=== PATIENT | female | born 1975 | race Caucasian/White ===

== ENCOUNTER 2017-05-03 19:51 | Emergency (ER) | payer OTHER, MEDICAID ==
[2017-05-03 19:57] VITALS: BP 136/82; BMI 43.4
--- NOTE | 2017-05-03 20:34 | DR.GENAD ---
HPI - PCP Primary Care Physician: melissa - HPI Comment HPI Comment: GETTING WORSE. NO FEVER OR DYSURIA. - Complaint/Symptoms Chief Complaint Doctors Comments: RIGHT LOWER BACK PAIN RADIATING TO THE RIGHT RT LEG TIMES 2 DAYS. Chief Complaint:: pt c/o pain to rt lower back that radiates down leg - Nurses notes reviewed Nurses Notes Review: Yes - Source History Provided: Patient - Mode of Arrival Mode of Arrival: Ambulatory - Timing Onset of Chief Complaint: 05/01/17 Came on: Suddenly - Duration Duration: Constant Duration: Days PMH - PMH Past Medical History: Yes Past Medical History: Anxiety, COPD, Seizures Past Surgical History: Yes Surgical History: Cholecystectomy, [employer] Surgery - Family History History of Family Medical Conditions: Yes Family Medical History: Diabetes Mellitus - Social History Type of Tobacco Use: Smokeless Alcohol Use: Occasionally Do you use any recreational Drugs:: No Lives With: Family Lives Where: Home - infectious screening In the last 2 months have you had wt loss of >10#?: NO Have you had fever, night sweats or hemotysis?: No Have you traveled outside the country in the last 6 months?: No Isolation: Standard ROS - Review of Systems Constitutional: No Symptoms Reported. negative: Chills, Fever Eyes: No Symptoms Reported. negative: Eye Pain, Discharge ENTM: No Symptoms Reported. negative: Ear Pain, Nose Discharge, Nose Congestion , Throat Swelling Respiratoy: No Symptoms Reported. negative: Productive Cough, Non-Productive Cough, Short of Breath, Wheezing, Hemoptysis Cardiovascular: No Symptoms Reported. negative: Chest Pain Gastrointestinal/Abdominal: No Symptoms Reported. negative: Abdominal Pain, Diarrhea, Nausea, Vomiting Genitourinary: No Symptoms Reported. negative: Dysuria, Frequency, Hematuria Neurological: No Symptoms Reported Musculoskeletal: Back Pain, Muscle Pain, Left, Back, Leg Integumentary: No Symptoms Reported Hematologic/Lymphatic: No Symptoms Reported Psychiatric: No Symptoms Reported All Other Systems: Reviewed and Negative PE - Vital Signs Vitals: Temperature 975 F Pulse Rate 80 Respiratory Rate 18 Blood Pressure [Right Arm] 128/70 Blood Pressure 136/82 O2 Sat by Pulse Oximetry 97 - General Limitations: No Limitations General Appearance: Alert - Head Head Exam: Normal Inspection - Eyes Eye exam: Normal Appearance - ENT ENT Exam: Normal External Ear Exam External Ear Exam: Normal External Inspection TM/Canal Exam: Bilateral Normal Nose Exam: Normal Nose Exam Mouth Exam: Normal Inspection Throat Exam: Normal Inspection - Neck Neck Exam: Normal Inspection - Chest Chest Inspection: Symmetric Chest Wall Rise - Respiratory Respiratory Exam: Normal Lung Sounds Bilat Respiratory Exam: Bilateral Clear to Auscultation - Cardiovascular Cardiovascular Exam: Regular Rate, Normal Rhythm, Normal Heart Sounds - Abdominal Exam Abdominal Exam: Normal Bowel Sounds, Soft. negative: Tenderness - Extremities Extremities Exam: Normal Inspection - Back Back Exam: Paraspinal Tenderness (RT LOWER BACK TENDERNESS.) - Neurologic Neurological Exam: Alert, Oriented X3 - Psychiatric Psychiatric Exam: Normal Affect, Normal Mood - Skin Skin Exam: Normal Color MDM - Additional Information Additional Information Obtained From: Family - Differential Diagnosis Differential Diagnosis: LOW BACK STRAIN, SPRAIN, FRACTURE. Course - Treatment Treatment: SEE ORDERS. IM MED FOR PAIN , IMPROVED. - Reevaluation 1st: Improved - Education/Counseling Education/Counseling: Patient, Family, Education Educated On: Treatment, Diagnosis, Needs for Follow Up ROR - XRAY XRAY Interpreted by: Radiologist XRAY Findings: REPORT DISCUSS WITH PATIENT. - Diagnosis Discharge Problem: Low back strain Qualifiers: Encounter type: initial encounter Qualified Code(s): S39.012A - Strain of muscle, fascia and tendon of lower back, initial encounter Low back sprain Qualifiers: Encounter type: initial encounter Qualified Code(s): S33.9XXA - Sprain of unspecified parts of lumbar spine and pelvis, initial encounter Low back pain Qualifiers: Chronicity: acute Back pain laterality: right Sciatica presence: with sciatica Sciatica laterality: sciatica of right side Qualified Code(s): M54.41 - Lumbago with sciatica, right side - Discharge Plan Disposition: 01 HOME, SELF-CARE Condition: Stable Prescriptions: Cyclobenzaprine HCl [Flexeril] 5 mg PO TID PRN #20 tab PRN Reason: Muscle Spasms Ibuprofen [MOTRIN TAB 800 MG *] 800 mg PO Q8H PRN #20 tab PRN Reason: Pain/Inflammation Tramadol HCl 50 mg PO Q8H PRN #15 tablet PRN Reason: - Follow ups/Referrals Follow ups/Referrals: SAMANTHA ANTUNEZ [Primary Care Provider] - 2 days - Instructions Instructions: Osteoarthritis, Musculoskeletal Pain, Back Pain, Adult, Easy-to- Read Additional Instructions: RETURN TO ED IF WORSE.
[2017-05-03] MEDS ORDERED: NORFLEX INJ IM ONE (20:39)
[2017-05-03] MEDS ORDERED: TORADOL 60 MG VIAL IM ONE (20:39)
[2017-05-03] MEDS ORDERED: NORFLEX INJ ONE (21:01)
[2017-05-03] MEDS ORDERED: TORADOL 60 MG VIAL ONE (21:01)
--- NOTE | 2017-05-03 21:27 | RAD ---
HISTORY: Pain Study: MR spine series Comparison: None Findings: The lumbar vertebra are well aligned. There is moderate disc space narrowing throughout the thoracolu mbar region a mild disc space narrowing throughout the lower lumbar spine with mild marginal osteophy karlo along the thoracolumbar region. No fracture or subluxation is seen. The pedicles are intact. Ther e are no pars defects. There are moderate sclerotic changes of the facets inferiorly. IMPRESSION: Moderate degenerative disk changes along the thoracolumbar spine and mild degenerative disk changes i nferiorly with no acute abnormality seen. 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 Reported By:
== END 2017-05-03 21:48 | disposition home or self-care (01) ==
LOC: ER 19:51
DX: S39.012A Strain of muscle, fascia and tendon of lower back, initial encounter (principal); S33.9XXA Sprain of unspecified parts of lumbar spine and pelvis, initial encounter; M54.41 Lumbago with sciatica, right side; M51.36 Other intervertebral disc degeneration, lumbar region; M47.896 Other spondylosis, lumbar region; Y33.XXXA Other specified events, undetermined intent, initial encounter; Y92.9 Unspecified place or not applicable
CPT/HCPCS: 72110; 96372; 99282; 99283; J1885; J2360

== ENCOUNTER 2017-09-30 13:22 | Emergency (ER) | payer OTHER, MEDICAID ==
[2017-09-30 13:26] VITALS: BP 137/86; BMI 40.7
--- NOTE | 2017-09-30 14:20 | DR.URIAD ---
HPI - Time Seen Time seen: 14:57 - PCP Primary Care Physician: HARMONY - HPI Comment HPI Comment: sick for about 4 days with flu-like symptoms, no known sick contacts - Complaint Chief Complaint:: PT. C/O FEVER, CHILLS, COUGH, CHEST CONGESTION, NAUSEA, SORE THROAT X 4 DAYS. - Reviewed Nurses Notes Reviewed: Yes - Source History Provided: Patient - Mode of Arrival Mode of Arrival: Ambulatory - Timing Onset of Chief Complaint: 09/26/17 - Associated Signs and Symptoms Other Signs and Symptoms: Cough, Fever, Myalgias, Nasal Symptoms, Sore Throat PMH - PMH Past Medical History: Yes Past Medical History: Seizures Past Medical History Comment: SHIZOAFFECTIVE DISORDER Past Surgical History: Yes Surgical History: Cholecystectomy, [employer]RI[employer] Surgery Past Surgical History Comment: TUBAL LIGATION - Family History History of Family Medical Conditions: Yes Family Medical History: Diabetes Mellitus - Social History Does patient currently use any type of tobacco product: No Have you used tobacco products in the last 12 months: No Type of Tobacco Use: None Does any household member use tobacco: No Alcohol Use: None Do you use any recreational Drugs:: No Lives With: Significant Other Lives Where: Home - infectious screening In the last 2 months have you had wt loss of >10#?: NO Have you had fever, night sweats or hemotysis?: No Have you traveled outside the country in the last 6 months?: No Isolation: Standard ROS - Review of Systems Constitutional: Chills, Fever, Malaise, Fatigue Eyes: No Symptoms Reported ENTM: Nose Congestion, Throat Pain Respiratoy: Non-Productive Cough Cardiovascular: negative: Chest Pain Gastrointestinal/Abdominal: Nausea Neurological: Headache Musculoskeletal: Joint Pain (diffuse), Muscle Pain Integumentary: No Symptoms Reported Hematologic/Lymphatic: No Symptoms Reported Endocrine: No Symptoms Reported Psychiatric: No Symptoms Reported All Other Systems: Reviewed and Negative PE - Vital Signs Vitals: Temperature 100.0 F Pulse Rate 83 Respiratory Rate 22 Blood Pressure [Right Arm] 128/70 Blood Pressure 137/86 O2 Sat by Pulse Oximetry 97 - General General Appearance: Alert, In No Apparent Distress - Head Head Exam: Normal Inspection - ENT ENT Exam: Normal Exam Nose Exam: Normal Nose Exam - Neck Neck Exam: Normal Inspection, Full ROM, Trachea Midline, Tenderness - Respiratory Respiratory Exam: Normal Lung Sounds Bilat - Cardiovascular Cardiovascular Exam: Regular Rate, Normal Rhythm, Systolic Murmur, Diastolic Murmur - Abdominal Exam Abdominal Exam: Normal Inspection, Normal Bowel Sounds, Soft - Extremeties Extremities Exam: Normal Inspection - Neurologic Neurological Exam: Alert, Oriented X3 - Skin Skin Exam: Warm. negative: Rash ROR - Labs Reviewed Laboratory Results Reviewed?: Yes (flu -, strep -) Laboratory: Influenza Type A (PCR) Negative (NEGATIVE) 09/30/17 13:41 Influenza Type B (PCR) Negative (NEGATIVE) 09/30/17 13:41 S. pyogenes (TEM-PCR) Not detected (NOT DETECT) 09/30/17 14:01 - Diagnosis Discharge Problem: URI, acute - Discharge Plan Disposition: HOME, SELF-CARE Condition: Stable - Follow ups/Referrals Follow ups/Referrals: SAMANTHA ANTUNEZ [Primary Care Provider] - 3 days - Instructions Instructions: Viral Respiratory Infection, [id number]
== END 2017-09-30 14:56 | disposition home or self-care (01) ==
LOC: ER 13:29
DX: J06.9 Acute upper respiratory infection, unspecified (principal)
CPT/HCPCS: 87502; 87651; 99282